=== PATIENT | female | born 1940 | race Caucasian/White ===

== ENCOUNTER 2016-08-15 10:09 | Day surgery (SDC) | payer MEDICARE, OTHER ==
--- NOTE | ~2016-08-15 | EGD ---
EGD REPORT [facility] [address] [address] NAME: JENNIFER PLUNKETT : [birth year] STATUS : REG [facility]#: [id number] AGE: 76 ADM/REG DATE : 08/15/16 MR#: [id number] REPORT SERV DATE: 08/15/16 DICTATED BY: DWAIN WEN DATE: 08/15/16 REPORT STATUS : Draft TRANSCRIBED BY: [facility] DATE: 08/15/16 [facility] Center Patient Name: Jennifer Plunkett Date of : 1940 Attending MD: DWAIN WEN MD Procedure Date No Time: 08/15/2016 Procedure: Colonoscopy Indications: High risk colon cancer surveillance: Personal history of colonic polyps, FH of Colon Cancer -distant relative Referring MD: SUE SOARES MD Medicines: as per anesthesia Complications: No immediate complications. Procedure: Pre-Anesthesia Assessment: - ASA Grade Assessment: II - A patient with mild systemic disease. After I obtained informed consent, the scope was passed under direct vision. Throughout the procedure, the patient's blood pressure, pulse, and oxygen saturations were monitored continuously. The [facility] [id number] was introduced through the anus and advanced to the cecum, identified by appendiceal orifice and ileocecal valve. The colonoscopy was somewhat difficult due to restricted mobility of the colon, significant looping and a tortuous colon. The patient tolerated the procedure. The quality of the bowel preparation was adequate to identify polyps. Findings: The perianal and digital rectal examinations were normal. A few small and large-mouthed diverticula were found in the sigmoid colon and in the descending colon. Internal hemorrhoids were found during endoscopy and were mild. Impression: - Diverticulosis in the sigmoid colon and in the descending colon. - Internal hemorrhoids. Recommendation: - Continue present medications. Procedure Code(s): --- Professional --- 02989, Colonoscopy, flexible, proximal to splenic flexure; diagnostic, with or without collection of specimen(s) by brushing or washing, with or without colon decompression (separate procedure) EGD REPORT [facility] [address] [place] [address] [address] [address] NAME: JENNIFER PLUNKETT DRCECELIA : 42 STATUS : REG [facility] PAT#: [id number] AGE: 76 ADM/REG DATE : 08/15/16 MR#: [id number] REPORT SERV DATE: 08/15/16 DICTATED BY: DWAIN WEN. DATE: 08/15/16 REPORT STATUS : Draft TRANSCRIBED BY: [employer] DATE: 08/15/16 Diagnosis Code(s): --- Professional --- K64.8, Other hemorrhoids K57.30, Diverticulosis of large intestine without perforation or abscess without bleeding Z86.010, Personal history of colonic polyps Z80.0, Family history of malignant neoplasm of digestive organs CPT copyright 2013 [employer]. All rights reserved. The codes documented in this report are preliminary and upon senior clinician review may be revised to meet current compliance requirements. DWAIN WEN MD 08/15/2016 1:20 PM This report has been signed electronically. Number of Addenda: 0 Note Initiated On: 08/15/2016 12:31 PM Scope Withdrawal Time 0 hours 18 minutes [address] [facility] [place] [address]
[~2016-08-15 10:09] MED LIST: ADVIL PM1 CAP PO; COREG3 PO; LEXAPRO10 PO; MEGA RED PO; NORV5 PO; VITAMIN B-121000 MC1 SL; VITAMIN D31000 UNIT PO
== END 2016-08-15 23:59 | disposition home or self-care (01) ==
LOC: DMU 10:09
PROVIDERS: Internal Medicine Gastroenterology
PROC: 0DJD8ZZ Inspection of Lower Intestinal Tract, Via Natural or Artificial Opening Endoscopic (ICD-10-PCS; principal; 2016-08-15 11:30)
DX: Z12.11 Encounter for screening for malignant neoplasm of colon (principal); K64.8 Other hemorrhoids; K57.30 Diverticulosis of large intestine without perforation or abscess without bleeding; Z86.010 Personal history of colon polyps; Z80.0 Family history of malignant neoplasm of digestive organs; I10 Essential (primary) hypertension; Z88.5 Allergy status to narcotic agent; Z88.8 Allergy status to other drugs, medicaments and biological substances; Z79.899 Other long term (current) drug therapy